=== PATIENT | female | born 1995 | race Caucasian/White ===

== ENCOUNTER 2024-01-13 09:59 | Emergency (ER) | payer BC ==
[2024-01-13 10:24] VITALS: TEMP 98.4
[2024-01-13] MEDS ORDERED: Sodium Chloride 0.9% 1000 ML 1,000 ML ONE (10:42)
[2024-01-13] MEDS: Sodium Chloride 0.9% 1000 ML 1,000 ML IV STA (10:42)
[2024-01-13 11:00] LABS: Absolute Neutrophil Ct (ANC) 13.39 x10^3/uL (1.56-6.13); BASOPHIL % 0.7 % (0.1-1.2); Basophil (Absolute #) 0.11 x10^3/uL (0.01-0.08); Eosinophil (Absolute #) 0.17 x10^3/uL (0.04-0.36); Hematocrit 41.6 % (34.1-44.9); IMMATURE GRAN % 0.6 % (0.001-0.429); Lymphocyte (Absolute #) 1.36 x10^3/uL (1.18-3.74); Lymphocytes % 8.4 % (19.3-51.7); Mean Cell Volume 87.8 fL (79.4-94.8); Mean Corpuscular Hemoglobin 27.4 pg (25.6-32.2); Mean Corpuscular Hgb Concent. 31.3 g/dL (32.2-35.5); Mean Platelet Volume 9.4 fL (9.4-12.3); Monocyte (Absolute #) 1.07 x10^3/uL (0.24-0.86); Monocytes % 6.6 % (4.7-12.5); Neutrophil % 82.7 % (34.0-71.1); Platelet Count 502 x10^3/uL (182-369); Red Blood Count 4.74 x10^6/uL (3.93-5.22); Red Cell Distribution Width 14.9 % (11.7-14.4); White Blood Count 16.2 x10^3/uL (3.98-10.04)
[2024-01-13 11:20] LABS: HCG SERUM TEST NEGATIVE (NEGATIVE)
[2024-01-13 11:23] LABS: ALBUMIN 4.1 g/dL (3.5-5.0); ANION GAP 14.4 MEQ/L (5-15); BILIRUBIN,TOTAL 0.6 mg/dL (0.2-1.3); Calcium 9.5 mg/dL (8.4-10.2); Creatinine 1 0.7 mg/dL (0.52-1.04); MAGNESIUM 2.3 mg/dL (1.6-2.3); NT PRO BNPII 42.3 pg/mL (<300); Potassium 3.4 mmol/L (3.5-5.1); Total Protein 8.7 g/dL (6.3-8.2)
[2024-01-13 11:38] LABS: INFLUENZA A NEGATIVE (NEGATIVE); INFLUENZA B NEGATIVE (NEGATIVE); RESPIRATORY SYNCTIAL VIRUS NEGATIVE (NEGATIVE); SARS-CoV-2 Xpert Express NEGATIVE (NEGATIVE)
--- NOTE | 2024-01-13 12:09 | ERPHSYRPT ---
- History of Present Illness Time Seen by Provider: 01/13/24 10:08 Source: patient, family Exam Limitations: no limitations Patient Subjective Stated Complaint: Pt c/o of cough for 2 months, states that she has fluid in her right lung, cough has continued to worsen Triage Nursing Assessment: Pt brought to the ER by her , tachycardic, rates pain as 4/10 unless she coughs it is then an 8/10, pulses normal, skin n/w/d, feels like she is short of breath although her oxygen is at 100%, doesn't appear to be in any distress Physician History: 28-year-old female with history of asthma is sent in ER from pulmonology office with 2 months history of cough with 2 rounds of antibiotics, steroids and still coughing up yellow-brown sputum moderate in amount with increasing pain on the right chest which hurts to take a deep breath. Patient reports getting short of breath with activity and even resting she feels palpitations. Patient heart rate was in 130s at pulmonology office, although she is afebrile, is sent in ER for further evaluation to rule out pulmonary embolism. No history of PE. Patient is tachycardic with heart rate in 130s blood pressure in 130s as well. Patient is not in any distress currently. Allergies/Adverse Reactions: No Known Drug Allergies Allergy (Verified 01/13/24 10:25) Home Medications: Fluticasone/Salmeterol 230/21* [Advair Hfa 230/21 Mcg MDI] 2 inh PO UD 01/13/24 [History] Hx Influenza Vaccination/Date Given: No Hx Pneumococcal Vaccination/Date Given: No Travel Risk - International Travel Have you traveled outside of the country in past 3 weeks: No - Emerging Infectious Disease Are you exhibiting symptoms associated with any current EIDs: No - Review of Systems Constitutional: Fatigue, Weakness Eyes: No Symptoms Ears, Nose, & Throat: No Symptoms Respiratory: Cough, Dyspnea, Dyspnea on Exertion (SAUNDERS) Cardiac: Chest Pain, Palpitations Abdominal/Gastrointestinal: No Symptoms Genitourinary Symptoms: No Symptoms Musculoskeletal: No Symptoms Skin: No Symptoms Neurological: No Symptoms Endocrine: No Symptoms Hematologic/Lymphatic: No Symptoms Immunological/Allergic: No Symptoms - Past Medical History Pertinent Past Medical History: Yes Neurological History: No Pertinent History ENT History: No Pertinent History Cardiac History: No Pertinent History Respiratory History: Asthma Endocrine Medical History: No Pertinent History Musculoskeletal History: No Pertinent History GI Medical History: No Pertinent History History: No Pertinent History Psycho-Social History: No Pertinent History Female Reproductive Disorders: No Pertinent History - Past Surgical History Past Surgical History: Yes Neuro Surgical History: No Pertinent History Cardiac: No Pertinent History Respiratory: No Pertinent History Gastrointestinal: No Pertinent History Genitourinary: No Pertinent History Musculoskeletal: No Pertinent History Female Surgical History: Section - Female History Hx Last Menstrual Period: last week Hx Now: No - Social History Smoking Status: Never smoker Exposure to second hand smoke: No Drug Use: none - Social Determinants of Health Will the patient participate in the screening: Yes Do you worry about a steady place to live?: Yes Do you have any problems with any of the following?: No known problems In the past 12 months,have you had to go without utilities?: No Transportation Issues: No Has anyone in your support network made you feel unsafe?: No Have you or anyone in your house had to go without enough: No - Nursing Vital Signs Nursing Vital Signs: Initial Vital Signs Temperature 98.4 F 01/13/24 10:09 Pulse Rate 129 H 01/13/24 10:09 Respiratory Rate 21 01/13/24 10:09 Blood Pressure 122/69 01/13/24 10:09 O2 Sat by Pulse Oximetry 100 01/13/24 10:09 Pain Scale Pain Intensity 4 - Physical Exam General Appearance: no apparent distress, alert, anxiety Eye Exam: PERRL/EOMI Ears, Nose, Throat Exam: hearing grossly normal Neck Exam: normal inspection, supple, full range of motion Respiratory Exam: normal breath sounds, lungs clear Cardiovascular/Chest Exam: regular rate/rhythm, tachycardia Abdominal/Gastrointestinal Exam: soft, normal bowel sounds, No tenderness Extremity Exam: non-tender, normal range of motion, normal inspection, normal capillary refill Neurologic Exam: alert, oriented x 3, cooperative, documentation analyst II-XII nml as tested Skin Exam: normal color SpO2 Interpretation: normal SpO2: 100 O2 Delivery: Room Air - Course EKG Interpreted by Me: RATE ([id number]), Sinus Tach, NORMAL AXIS, NORMAL INTERVALS, NORMAL QRS Ordered Tests: Active Orders 24 hr Category Date Time Status Braille Teacher STAT Care 01/13/24 10:19 Active EKG-ER Only STAT Care 01/13/24 10:18 Active IV Insertion STAT Care 01/13/24 10:18 Active CHEST WITH CONTRAST [CT] Stat Exams 01/13/24 11:22 Completed BLOOD CULTURE Stat Lab 01/13/24 10:52 Received CBC W DIFF Stat Lab 01/13/24 10:18 Completed CMP Stat Lab 01/13/24 10:52 Completed D-DIMER QUANTITATIVE Stat Lab 01/13/24 10:52 Completed HCG QUALITATIVE, SERUM Stat Lab 01/13/24 10:52 Completed Lactic Acid Stat Lab 01/13/24 10:41 Completed MAGNESIUM Stat Lab 01/13/24 10:52 Completed NT PRO BNPII Stat Lab 01/13/24 10:52 Completed TROPONIN Q4H Lab 01/13/24 10:52 Completed TROPONIN Q4H Lab 01/13/24 14:30 Ordered TROPONIN Q4H Lab 01/13/24 18:30 Ordered UA W/RFX UR CULTURE Stat Lab 01/13/24 10:39 Completed Respiratory Therapy Assessment DAILY RT 01/13/24 13:13 Active Medication Summary Discontinued Medications Generic Name Dose Route Start Last Admin Trade Name Viviane PRN Reason Stop Dose Admin Methylprednisolone Sodium 0 mg 01/13/24 13:01 01/13/24 13:12 Succinate 125 mg/ Sterile IV 01/13/24 13:02 125 mg Water 2 ml STAT ONE Administration Sodium Chloride 1,000 mls @ 999 mls/hr 01/13/24 10:18 01/13/24 11:45 Sodium Chloride 0.9% 1000 Ml IV 01/13/24 11:18 Infused .Q1H1M STA Infusion Sodium Chloride Confirm 01/13/24 10:42 Sodium Chloride 0.9% 1000 Ml Administered 01/13/24 10:43 Dose 1,000 mls @ ud .ROUTE .STK-MED ONE Levalbuterol HCl 1.25 mg 01/13/24 13:01 01/13/24 13:10 Levalbuterol Hcl 1.25 Mg/0.5 Ml Neb IH 01/13/24 13:02 1.25 mg STAT ONE Administration Levalbuterol HCl Confirm 01/13/24 13:09 Levalbuterol Hcl 1.25 Mg/0.5 Ml Neb Administered 01/13/24 13:10 Dose 1.25 mg IH .STK-MED ONE Methylprednisolone Sodium Succinate Confirm 01/13/24 13:10 Methylprednis Sod Succ 125 Mg/2 Ml Vial Administered 01/13/24 13:11 Dose 125 mg .ROUTE .STK-MED ONE Sodium Chloride Confirm 01/13/24 13:09 Sodium Cl For Inhalation 3 Ml Ud Nebule Administered 01/13/24 13:10 Dose 3 ml IH .STK-MED ONE Sterile Water Confirm 01/13/24 13:10 Water For Injection,Sterile 10 Ml Vial Administered 01/13/24 13:11 Dose 10 ml IJ .STK-MED ONE Lab/Rad Data: Laboratory Result Diagrams 01/13/24 10:18 01/13/24 10:52 Laboratory Results 01/13/24 01/13/24 01/13/24 Range/Units 10:52 10:52 10:52 WBC (3.98-10.04) x10^3/uL RBC (3.93-5.22) x10^6/uL Hgb (11.2-15.7) g/dL Hct (34.1-44.9) % MCV (79.4-94.8) fL MCH (25.6-32.2) pg MCHC (32.2-35.5) g/dL RDW (11.7-14.4) % Plt Count (182-369) x10^3/uL MPV (9.4-12.3) fL Gran % (34.0-71.1) % Immature Gran % (Auto) (0.001-0.429) % Nucleat RBC Rel Count (0.00-0.2) % Eos # (Auto) (0.04-0.36) x10^3/uL Immature Gran # (Auto) (0.001-0.031) x10^3u/L Absolute Lymphs (auto) (1.18-3.74) x10^3/uL Absolute Monos (auto) (0.24-0.86) x10^3/uL Absolute Nucleated RBC (0.00-0.012) x10^3u/L Lymphocytes % (19.3-51.7) % Monocytes % (4.7-12.5) % Eosinophils % (0.7-5.8) % Basophils % (0.1-1.2) % Absolute Granulocytes (1.56-6.13) x10^3/uL Basophils # (0.01-0.08) x10^3/uL D-Dimer (0.0-0.50) mg/L Sodium (135-145) mmol/L Potassium (3.5-5.1) mmol/L Chloride (98-107) mmol/L Carbon Dioxide (22-30) mmol/L Anion Gap (5-15) MEQ/L BUN (7-17) mg/dL Creatinine (0.52-1.04) mg/dL Estimated GFR ML/MIN Glucose (74-106) mg/dL Lactic Acid (0.4-2.0) Calcium (8.4-10.2) mg/dL Magnesium (1.6-2.3) mg/dL Total Bilirubin (0.2-1.3) mg/dL AST (14-36) U/L ALT (0-35) U/L Alkaline Phosphatase (38-126) U/L Troponin I < 0.012 (0.000-0.033) ng/mL NT-Pro-B Natriuret Pep (<300) pg/mL Serum Total Protein (6.3-8.2) g/dL Albumin (3.5-5.0) g/dL Serum HCG, Qual NEGATIVE (NEGATIVE) Urine Color (Yellow) Urine Appearance (Clear) Urine pH (4.6-8.0) Ur Specific [place] (1.005-1.030) Urine Protein (Negative) Urine Glucose (UA) (Negative) mg/dL Urine Ketones (Negative) Urine Blood (Negative) Urine Nitrite (Negative) Urine Bilirubin (Negative) Urine Urobilinogen (0.2) mg/dL Ur Leukocyte Esterase (Negative) U Hyaline Cast (Auto) (0-2) /LPF Urine Microscopic RBC (0-5) /HPF Urine Microscopic WBC (0-5) /HPF Ur Epithelial Cells (None Seen) /HPF Urine Bacteria (None Seen) /HPF Urine Culture Reflexed (NO) Influenza Type A Ag NEGATIVE (NEGATIVE) Influenza Type B Ag NEGATIVE (NEGATIVE) RSV (PCR) NEGATIVE (NEGATIVE) SARS-CoV-2 (PCR) NEGATIVE (NEGATIVE) 01/13/24 01/13/24 01/13/24 Range/Units 10:52 10:52 10:41 WBC (3.98-10.04) x10^3/uL RBC (3.93-5.22) x10^6/uL Hgb (11.2-15.7) g/dL Hct (34.1-44.9) % MCV (79.4-94.8) fL MCH (25.6-32.2) pg MCHC (32.2-35.5) g/dL RDW (11.7-14.4) % Plt Count (182-369) x10^3/uL MPV (9.4-12.3) fL Gran % (34.0-71.1) % Immature Gran % (Auto) (0.001-0.429) % Nucleat RBC Rel Count (0.00-0.2) % Eos # (Auto) (0.04-0.36) x10^3/uL Immature Gran # (Auto) (0.001-0.031) x10^3u/L Absolute Lymphs (auto) (1.18-3.74) x10^3/uL Absolute Monos (auto) (0.24-0.86) x10^3/uL Absolute Nucleated RBC (0.00-0.012) x10^3u/L Lymphocytes % (19.3-51.7) % Monocytes % (4.7-12.5) % Eosinophils % (0.7-5.8) % Basophils % (0.1-1.2) % Absolute Granulocytes (1.56-6.13) x10^3/uL Basophils # (0.01-0.08) x10^3/uL D-Dimer 2.10 H* (0.0-0.50) mg/L Sodium 137 (135-145) mmol/L Potassium 3.4 L (3.5-5.1) mmol/L Chloride 98 (98-107) mmol/L Carbon Dioxide 29 (22-30) mmol/L Anion Gap 14.4 (5-15) MEQ/L BUN 5 L (7-17) mg/dL Creatinine 0.70 (0.52-1.04) mg/dL Estimated GFR 120.0 ML/MIN Glucose 103 (74-106) mg/dL Lactic Acid 1.3 (0.4-2.0) Calcium 9.5 (8.4-10.2) mg/dL Magnesium 2.3 (1.6-2.3) mg/dL Total Bilirubin 0.60 (0.2-1.3) mg/dL AST 22 (14-36) U/L ALT 15 (0-35) U/L Alkaline Phosphatase 170 H (38-126) U/L Troponin I (0.000-0.033) ng/mL NT-Pro-B Natriuret Pep 42.3 (<300) pg/mL Serum Total Protein 8.7 H (6.3-8.2) g/dL Albumin 4.1 (3.5-5.0) g/dL Serum HCG, Qual (NEGATIVE) Urine Color (Yellow) Urine Appearance (Clear) Urine pH (4.6-8.0) Ur Specific [place] (1.005-1.030) Urine Protein (Negative) Urine Glucose (UA) (Negative) mg/dL Urine Ketones (Negative) Urine Blood (Negative) Urine Nitrite (Negative) Urine Bilirubin (Negative) Urine Urobilinogen (0.2) mg/dL Ur Leukocyte Esterase (Negative) U Hyaline Cast (Auto) (0-2) /LPF Urine Microscopic RBC (0-5) /HPF Urine Microscopic WBC (0-5) /HPF Ur Epithelial Cells (None Seen) /HPF Urine Bacteria (None Seen) /HPF Urine Culture Reflexed (NO) Influenza Type A Ag (NEGATIVE) Influenza Type B Ag (NEGATIVE) RSV (PCR) (NEGATIVE) SARS-CoV-2 (PCR) (NEGATIVE) 01/13/24 01/13/24 Range/Units 10:39 10:18 WBC 16.2 H (3.98-10.04) x10^3/uL RBC 4.74 (3.93-5.22) x10^6/uL Hgb 13.0 (11.2-15.7) g/dL Hct 41.6 (34.1-44.9) % MCV 87.8 (79.4-94.8) fL MCH 27.4 (25.6-32.2) pg MCHC 31.3 L (32.2-35.5) g/dL RDW 14.9 H (11.7-14.4) % Plt Count 502 H (182-369) x10^3/uL MPV 9.4 (9.4-12.3) fL Gran % 82.7 H (34.0-71.1) % Immature Gran % (Auto) 0.6 H (0.001-0.429) % Nucleat RBC Rel Count 0.0 (0.00-0.2) % Eos # (Auto) 0.17 (0.04-0.36) x10^3/uL Immature Gran # (Auto) 0.10 H (0.001-0.031) x10^3u/L Absolute Lymphs (auto) 1.36 (1.18-3.74) x10^3/uL Absolute Monos (auto) 1.07 H (0.24-0.86) x10^3/uL Absolute Nucleated RBC 0.00 (0.00-0.012) x10^3u/L Lymphocytes % 8.4 L (19.3-51.7) % Monocytes % 6.6 (4.7-12.5) % Eosinophils % 1.0 (0.7-5.8) % Basophils % 0.7 (0.1-1.2) % Absolute Granulocytes 13.39 H (1.56-6.13) x10^3/uL Basophils # 0.11 H (0.01-0.08) x10^3/uL D-Dimer (0.0-0.50) mg/L Sodium (135-145) mmol/L Potassium (3.5-5.1) mmol/L Chloride (98-107) mmol/L Carbon Dioxide (22-30) mmol/L Anion Gap (5-15) MEQ/L BUN (7-17) mg/dL Creatinine (0.52-1.04) mg/dL Estimated GFR ML/MIN Glucose (74-106) mg/dL Lactic Acid (0.4-2.0) Calcium (8.4-10.2) mg/dL Magnesium (1.6-2.3) mg/dL Total Bilirubin (0.2-1.3) mg/dL AST (14-36) U/L ALT (0-35) U/L Alkaline Phosphatase (38-126) U/L Troponin I (0.000-0.033) ng/mL NT-Pro-B Natriuret Pep (<300) pg/mL Serum Total Protein (6.3-8.2) g/dL Albumin (3.5-5.0) g/dL Serum HCG, Qual (NEGATIVE) Urine Color Yellow (Yellow) Urine Appearance Clear (Clear) Urine pH 7.0 (4.6-8.0) Ur Specific [place] <=1.005 (1.005-1.030) Urine Protein Negative (Negative) Urine Glucose (UA) Negative (Negative) mg/dL Urine Ketones Negative (Negative) Urine Blood Trace (Negative) Urine Nitrite Negative (Negative) Urine Bilirubin Negative (Negative) Urine Urobilinogen 0.2 (0.2) mg/dL Ur Leukocyte Esterase Negative (Negative) U Hyaline Cast (Auto) NONE SEEN (0-2) /LPF Urine Microscopic RBC 0-2 (0-5) /HPF Urine Microscopic WBC 0-2 (0-5) /HPF Ur Epithelial Cells None Seen (None Seen) /HPF Urine Bacteria None Seen (None Seen) /HPF Urine Culture Reflexed NO (NO) Influenza Type A Ag (NEGATIVE) Influenza Type B Ag (NEGATIVE) RSV (PCR) (NEGATIVE) SARS-CoV-2 (PCR) (NEGATIVE) - Progress Progress: re-examined Air Movement: good Progress Note: 01/13/24 13:41 28-year-old with history of asthma is evaluated in the ER with 2 months history of cough, difficulty breathing. Patient was tachycardic at pulmonology office and sent in here for further evaluation to rule out pulmonary embolism. Patient EKG is sinus tach with rate in 120s, no ST elevations. Negative initial troponin. She is given fluids with minimal improvement in the heart rate. Given neb treatments Xopenex and Solu-Medrol. Workup showed white count of 16, chemistries fairly unremarkable and negative troponins. Patient has a positive D-dimer and CTA is negative for pulmonary embolism but did showed near complete atelectasis of left lung with right lung pushing towards the left and some buds on tree opacities in the right upper lobe suggesting pneumonitis, bronchiolitis, metastasis or any other infectious etiology. I have shared the results of workup with patient and family and also with Dr. Gutierrez who recommended continue with steroid, neb treatments and transferred to [facility] for further evaluation and management. We do not have pulmonology services here, I have called [facility] transfer center, reviewed history, workup with district sales coordinator and patient is auto excepted on behalf of Dr. Davis. Patient is his history, workup, interpretation of data, discussion with specialist and the management plan is one of the high level complexity. Blood Culture(s) Obtained: Yes Antibiotics given: No Discussed with Dr.: Other (Dr. Gutierrez pulmonology, ) Will see patient in: hospital (observation) Counseled pt/family regarding: lab results, diagnosis, need for follow-up, rad results Medical Desision Making - Independent Historian Additional History obtained from: Spouse - Discussion of managment Care discussed with:: specialist (Dr. Gutierrez pulmonology) Reviewed:: Test results, Need for additional workup Agreed on:: Treatment plan, decision to admit Will see patient: in hospital - Diagnostic Testing Diagnostic test were ordered, analyzed, and reviewed by me: Yes Radiological Interpretation: Reviewed by me - Risk of complications The pt has a mod risk of morbidity or mortality based on: Need for prescription drug management The pt has a high risk of morbidity or mortality based on: Decision regarding hospitilization or escalation of hosp level of care - Departure Departure Disposition: Transfer Clinical Impression: Complete atelectasis of left lung, Pneumonitis Condition: Stable Critical Care Time: No Referrals: SONIA HAGAN MD [Primary Care Provider] - Follow up/PCP as directed
[2024-01-13 12:14] LABS: Appearance Clear (Clear); Bacteria None Seen /HPF (None Seen); Bilirubin Negative (Negative); Blood Trace (Negative); Epithelial Cells None Seen /HPF (None Seen); Glucose, Urine Negative (Negative); Hyaline Casts NONE SEEN /LPF (0-2); Ketones Negative (Negative); Leukocyte Esterase Negative (Negative); Nitrite Negative (Negative); Protein,Urine Dip Negative (Negative); RBC 0-2 /HPF (0-5); Specific Gravity <=1.005 (1.005-1.030); Urobilinogen 0.2 mg/dL (0.2); WBC 0-2 /HPF (0-5)
[2024-01-13 12:19] LABS: ADD URINE CULTURE? NO (NO)
--- NOTE | 2024-01-13 12:41 | XRAY ---
Indication: Cough. Elevated d-dimer. Multiple contiguous axial images obtained through the chest using 80 cc Isovue 370 contrast and PE protocol. Comparison: None Good opacification pulmonary arteries to include the lobar and segmental branches. No pulmonary embolus. Heart is not enlarged. Aorta is normal in course and caliber. No pathologic mediastinal/hilar lymphadenopathy. Lungs demonstrates near complete left lung atelectasis with left lung volume loss and mediastinal shift. Right lung demonstrates compensatory hyperinflation with minimal anterior inferior right upper lobe [id number] opacities which can be seen with hematogenous infection, metastasis, hypersensitivity pneumonitis, and bronchiolitis. Bony thorax intact. Limited upper abdomen including adrenal glands are unremarkable. Impression: 1. Negative pulmonary embolus. 2. Near complete left lung atelectasis with subsequent mediastinal shift. 3. Minimal right upper lobe [id number] opacities. Partial differential offered above.
[2024-01-13] MEDS ORDERED: Xopenex 1.25 MG/0.5 ML UD NEBULE IH ONE (13:09)
[2024-01-13] MEDS ORDERED: Sodium Chloride 3 ML UD NEBULES IH ONE (13:09)
[2024-01-13] MEDS ORDERED: Sterile H2O 10 ml IJ ONE (13:10)
[2024-01-13] MEDS: Xopenex 1.25 MG/0.5 ML UD NEBULE IH ONE (13:10)
[2024-01-13] MEDS ORDERED: solu-MEDROL ONE (13:10)
[2024-01-13] MEDS: solu-MEDROL 125 MG, Sterile H2O 10 ml 2 ML IV ONE (13:12)
[2024-01-13 14:55] VITALS: BP 120/70; PULSE 142; RESP 21; O2SAT 98
== END 2024-01-13 14:45 | disposition short-term general hospital (02) ==
LOC: ED 09:59
DX: J98.11 Atelectasis (principal); J98.4 Other disorders of lung; R05.3 Chronic cough; R09.3 Abnormal sputum; R00.2 Palpitations; Z59.819 Housing instability, housed unspecified
CPT/HCPCS: 0241U; 36000; 36415; 71260; 80053; 81001; 83605; 83735; 83880; 84484; 84703; 85025; 85379; 87040; 93005; 93041; 94640; 96360; 96374; 99284; J2919; A9270-GY